=== PATIENT | female | born 1980 ===

== ENCOUNTER 2021-04-03 21:08 | Emergency (ER) | payer OTHER ==
[~2021-04-03] VITALS: Ht 162.6 cm; Wt 83.5 kg
--- NOTE | 2021-04-03 21:25 | NUR ---
PT AMBULATED TO ER C/O TORRES AND INTERMITTENT NAUSEA SINCE THIS AM. PT TOOK MOTRIN AT 1930. A/O X4, NO SOB OR LABORED BREATHING, AFEBRILE. DENIES CP/PRESSURE.
--- NOTE | 2021-04-03 21:52 | NUR ---
xray at bedside.
[2021-04-03] MEDS ORDERED: ONDANSETRON 4 MG/2 ML VIAL ONE (22:01)
--- NOTE | 2021-04-03 22:02 | NUR ---
LAB AT BEDSIDE.
[2021-04-03] MEDS: IV NORMAL SALINE 1000 ML BAG IV ONE (22:09)
[2021-04-03] MEDS: ONDANSETRON 4 MG/2 ML VIAL IV ONE (22:09)
[2021-04-03 22:22] LABS: HEMATOCRIT 46.3 % (31.2-41.9); MEAN CORPUSCULAR HEMOGLOBIN 28.7 uug (24.7-32.8); MEAN CORPUSCULAR VOLUME 84.2 fL (75.5-95.3); PLATELET COUNT (AUTO) 287 K/uL (179-408)
[2021-04-03 22:46] LABS: CREATININE 0.7 mg/dL (0.6-1.3); POTASSIUM 3.5 mmol/L (3.5-5.1)
[2021-04-03 22:53] LABS: BILIRUBIN,DIRECT 0.2 mg/dL (0.0-0.2); BILIRUBIN,TOTAL 0.5 mg/dL (0.2-1.0); TOTAL PROTEIN, SERUM 8.9 g/dL (6.4-8.2)
[2021-04-03 22:55] LABS: CREATINE KINASE, TOTAL 114 U/L (26-192); LIPASE 221 U/L (73-393); MAGNESIUM 2.5 mg/dL (1.8-2.4); PHOSPHOROUS 4.5 mg/dL (2.5-4.9)
[2021-04-03 22:56] LABS: THYROID STIMULATING HORMONE 1.331 mIU/mL (0.358-3.740)
[2021-04-03 23:21] LABS: *BILIRUBIN,URIN NEGATIVE (NEGATIVE); *BLOOD, URINE 2+ (NEGATIVE); *CLARITY,URINE CLEAR (CLEAR); *COLOR,URINE YELLOW (YELLOW); *KETONES,URINE 2+ (NEGATIVE); *UROBILINOGEN,URINE 0.2 E.U./dl (NORMAL); LEUKOCYTE ESTERASE ,URINE NEGATIVE (NEGATIVE); NITRITE, URINE NEGATIVE (NEGATIVE); PH,URINE 5.5 (5.0-8.0); UGLUCOSE NEGATIVE (NEGATIVE)
[2021-04-03 23:39] LABS: *AMPHETAMINE, URINE NEGATIVE (NEGATIVE); *CANNABINOID, URINE NEGATIVE (NEGATIVE); *COCCAINE, URINE NEGATIVE (NEGATIVE); *OPIATE, URINE NEGATIVE (NEGATIVE); *PHENCYCLIDINE SCREEN,URINE NEGATIVE (NEGATIVE)
[2021-04-03] MEDS ORDERED: LORAZEPAM 0.5 MG TABLET ONE (23:40)
[2021-04-04] MEDS: LORAZEPAM 0.5 MG TABLET PO ONE (00:15)
[2021-04-04 00:42] LABS: WBC,URINE 0-3 /HPF (0-3)
[2021-04-04 00:43] LABS: BACTERIA,URINE NONE SEEN /HPF (NONE SEEN); RBC,URINE 0-3 /HPF (0-3); SQUAMOUS EPITHELIAL CELL,UR FEW /HPF (NONE SEEN)
--- NOTE | 2021-04-04 01:00 | NUR ---
Patient discharged to home in stable condition. Written and verbal after care instructions given. Patient verbalizes understanding of instructions. Stressed follow up or return to ER for worsening s/s. Steady gait. Denies any pain/discomfort upon discharge.
[2021-04-04 01:42] VITALS: BP 133/81
== END 2021-04-04 01:10 | disposition home or self-care (01) ==
LOC: ER 21:15
DX: E86.0 Dehydration (principal); R51.9 Headache, unspecified; R42 Dizziness and giddiness; Z20.822 Contact with and (suspected) exposure to COVID-19; R82.4 Acetonuria; E66.9 Obesity, unspecified; Z68.31 Body mass index [BMI] 31.0-31.9, adult; E78.5 Hyperlipidemia, unspecified; I10 Essential (primary) hypertension; Z88.6 Allergy status to analgesic agent
CPT/HCPCS: 36415; 70030-TC; 70450; 71045; 83690; 83735; 84100; 84443; 85025; 85730; 93005; A4663; J2405; J7030